=== PATIENT | male | born 1985 | race Caucasian/White ===

== ENCOUNTER 2017-06-22 19:25 | Emergency (ER) | payer OTHER ==
[2017-06-22 23:20] LABS: HEMOGLOBIN 14.3 g/dL (14.0-18.0); MEAN CELL VOLUME 91.3 fL (80-100); MEAN CORPUSCULAR HEMOGLOBIN 31.8 pg (25-34); MEAN CORPUSCULAR HGB CONC 34.9 g/dl (32-36); MEAN PLATELET VOLUME 9.1 fL (7.4-10.4); PLATELET COUNT 368 K/uL (130-400); RED CELL DISTRIBUTION WIDTH CV 12.3 % (11.5-14.5); RED CELL DISTRIBUTION WIDTH SD 40.9 fL (36.4-46.3); WHITE BLOOD COUNT 13.25 K/uL (4.8-10.8)
[2017-06-23 00:33] LABS: ALBUMIN 4.2 gm/dl (3.4-5.0); BLOOD UREA NITROGEN 9 mg/dl (7-18); CALCIUM 9.5 mg/dl (8.5-10.1); CARBON DIOXIDE 27 mmol/L (21-32); CREATININE 0.71 mg/dl (0.60-1.40); GLUCOSE 83 mg/dl (70-99); POTASSIUM 3.9 mmol/L (3.5-5.1); SODIUM 140 mmol/L (136-145)
[2017-06-23] MEDS ORDERED: CLON0.5T3 PO (00:42)
[2017-06-23] MEDS ORDERED: ESCI1TAB6 PO (00:42)
[2017-06-23] MEDS ORDERED: ESCI10TA17 PO (00:42)
[2017-06-23 00:44] LABS: ALKALINE PHOSPHATASE 144 U/L (45-117); ALT/SGPT 15 U/L (12-78); AST/SGOT 20 U/L (15-37); TOTAL PROTEIN 7.9 gm/dl (6.4-8.2)
[2017-06-23 02:04] VITALS: BP 131/78; PULSE 87; O2SAT 98
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
--- NOTE | 2017-06-23 16:21 | Psych Management Progress Note ---
Psychiatry Miscellaneous Date of Service: Jun 23, 2017. nursing liaison presented case to me by phone overnight. Reviewed no SI/HI/ gracia and although not functioning as well as he could per mother no evidence of severe inability to care for self (eat/drink/bathe) so did not appear to meet criteria for inpatient, recommended psych outpatient f/u and safety plan.
== END 2017-06-23 02:04 | disposition home or self-care (01) ==
LOC: C.EDA 19:25
DX: F39 Unspecified mood [affective] disorder (principal); F41.9 Anxiety disorder, unspecified; R63.4 Abnormal weight loss; Z79.899 Other long term (current) drug therapy; Z81.8 Family history of other mental and behavioral disorders; F17.200 Nicotine dependence, unspecified, uncomplicated